=== PATIENT | male | born 1955 | race Caucasian/White ===

== ENCOUNTER 2017-08-12 18:17 | Emergency (ER) | payer OTHER ==
[~2017-08-12] VITALS: Ht 180.3 cm; Wt 90.8 kg
[2017-08-12] MEDS ORDERED: morphine 4 MG/ML inj SYRINge IM ONE (19:55)
[2017-08-12] MEDS ORDERED: ketorolac trometh. 30mg/ml inj. IV ONE (19:55)
[2017-08-12] MEDS ORDERED: ketorolac tromethamine 15mg/ml inj. IV ONE (19:55)
[2017-08-12] MEDS ORDERED: TRAM50TA2 PO (20:51)
[2017-08-12 21:06] VITALS: BP 155/74
== END 2017-08-12 21:12 | disposition home or self-care (01) ==
LOC: ER 18:18
DX: S82.892A Other fracture of left lower leg, initial encounter for closed fracture (principal); W01.0XXA Fall on same level from slipping, tripping and stumbling without subsequent striking against object, initial encounter; Y93.89 Activity, other specified; Y92.89 Other specified places as the place of occurrence of the external cause; Y99.8 Other external cause status
CPT/HCPCS: 29515; 73610; 96372; 96374; 99284; A6255; A6449; J1885; J2270

== ENCOUNTER 2017-08-27 08:26 | Outpatient (CLI) | payer OTHER ==
[~2017-08-27 08:26] MED LIST: TRAM50TA2 PO
[2017-08-27 08:29] VITALS: BP 158/83
== END 2017-08-27 09:46 | disposition home or self-care (01) ==
LOC: ORTHO 08:26
PROVIDERS: ATTEND Nurse Practitioner Family
DX: S82.832G Other fracture of upper and lower end of left fibula, subsequent encounter for closed fracture with delayed healing (principal); I10 Essential (primary) hypertension; E78.00 Pure hypercholesterolemia, unspecified; J44.9 Chronic obstructive pulmonary disease, unspecified; F17.210 Nicotine dependence, cigarettes, uncomplicated; X58.XXXD Exposure to other specified factors, subsequent encounter
CPT/HCPCS: 73610; 99213; A6446; A6449

== ENCOUNTER 2017-09-02 10:32 | Day surgery (SDC) | payer OTHER ==
[2017-09-01 15:40] LABS: BASOPHILS % (AUTO) 0.4 % (0-1); EOSINOPHILS # (AUTO) 0.2 X10'3 (0-0.9); EOSINOPHILS % (AUTO) 2.6 % (0-6); LYMPHOCYTES # (AUTO) 1.9 X10'3 (1.1-4.8); LYMPHOCYTES % (AUTO) 20.4 % (21-51); MEAN CORPUSCULAR HEMOGLOBIN 32.1 PG (27.0-31.0); MEAN CORPUSCULAR HGB CONC 34.7 % (33.0-36.5); MEAN CORPUSCULAR VOLUME 92.7 FL (78-98); MEAN PLATELET VOLUME 7.5 FL (7.4-10.4); MONOCYTES # (AUTO) 0.5 X10'3 (0-0.9); MONOCYTES % (AUTO) 4.9 % (2-12); NEUTROPHILS # (AUTO) 6.7 X10'3 (1.8-7.7); NEUTROPHILS % (AUTO) 71.7 % (42-75); PRE OP HEMATOCRIT 45.4 % (42.0-52.0); PRE OP HEMOGLOBIN 15.8 g/dL (14.0-17.9); PRE OP PLATELET COUNT 223 X10'3 (140-440); RED CELL DISTRIBUTION WIDTH 14.3 % (11.5-14.5)
[2017-09-01 15:46] LABS: ALBUMIN 3.6 G/DL (3.4-5.0); ALBUMIN/GLOBULIN RATIO 0.9 (1.1-1.5); ALKALINE PHOSPHATASE 85 IU/L (46-116); BLOOD UREA NITROGEN 14 MG/DL (7-18); BUN/CREATININE RATIO 13.9 (5.4-32.0); CALCIUM 8.9 MG/DL (8.5-10.1); CHLORIDE 105 MMOL/L (99-107); CREATININE 1.01 MG/DL (0.60-1.10); PRE OP ALT 46 U/L (30-65); PRE OP ANION GAP 6 (8-16); PRE OP AST 24 U/L (10-37); PRE OP BILIRUB, TOTAL 0.3 MG/DL (0.0-1.0); PRE OP GLUCOSE 92 MG/DL (70-104); PRE OP POTASSIUM 4.1 MMOL/L (3.4-5.1); PRE OP SODIUM 142 MMOL/L (135-145); TOTAL CARBON DIOXIDE 30.7 MMOL/L (24-32); TOTAL PROTEIN 7.5 G/DL (6.4-8.2); eGFR 74 ML/MIN
[~2017-09-02] VITALS: Ht 177.8 cm; Wt 106.6 kg
[~2017-09-02 10:32] MED LIST changes: +ceFAZolin inj. 2,000 MG in dextrose 5%-water 100 ML IV ONE; +famotidine 20mg tablet PO ONE; +ringers solution, lacted 1,000 ML IV SCH; +vancomycin inj 1,500 MG in normal saline 300ml IV soln IV ONE
[2017-09-02 10:45] VITALS: BP 157/79
[2017-09-02] MEDS ORDERED: bacitracin 15gm ointment TP ONE (12:40)
[2017-09-02] MEDS ORDERED: ceFAZolin 1000mg inj ONE (12:40)
[2017-09-02] MEDS ORDERED: BUPIVAcaine/PF 7.5mg/ml (0.75%) 10ml vial ONE (12:40)
[2017-09-02] MEDS ORDERED: fentaNYL /PF 50mcg/ml 5ml ampule ONE (13:01)
[2017-09-02] MEDS ORDERED: midazolam 2 mg/2 ml injection ONE (13:01)
[2017-09-02] MEDS ORDERED: LIDOcaine 2% (20mg/ml) 5ml vial ONE ×2 (13:02→14:24)
[2017-09-02] MEDS ORDERED: propofol inj 20 ML IV ONE (13:02)
[2017-09-02] MEDS ORDERED: sevoflurane 250ml liquid IH ONE (13:12)
[2017-09-02] MEDS ORDERED: metoprolol tartrate 1mg/ml inj IV ONE (13:12)
[2017-09-02] MEDS ORDERED: ringers solution, lacted 1,000 ML IV SCH (13:53)
[2017-09-02] MEDS ORDERED: ondansetron/PF 4mg/2ml inj IV PRN (13:55)
[2017-09-02] MEDS ORDERED: HYDROmorphone inj. 0.5 MG/0.5 ML DISP.SYRIN IV PRN (13:55)
[2017-09-02] MEDS ORDERED: hydrALAZINE 20mg/ml inj. IV PRN (13:55)
[2017-09-02] MEDS ORDERED: HYDROmorphone 1 mg/ml syringe IV PRN (14:02)
[2017-09-02] MEDS ORDERED: ketorolac trometh. 30mg/ml inj. ONE (14:05)
[2017-09-02] MEDS ORDERED: fentaNYL/PF 50MCG/1 ML 2ML syringe ONE (14:17)
[2017-09-02] MEDS ORDERED: ondansetron/PF 4mg/2ml inj ONE (14:17)
[2017-09-02 15:10] VITALS: BP 160/113
[2017-09-02] MEDS: fentaNYL/PF 50MCG/1 ML 2ML syringe IV PRN ×2 (15:15→15:37)
[2017-09-02 15:20] VITALS: BP 186/91
[2017-09-02 15:30] VITALS: BP 155/73
[2017-09-02 15:40] VITALS: BP 148/77
[2017-09-02 15:50] VITALS: BP 140/94
== END 2017-09-02 16:20 | disposition home or self-care (01) ==
LOC: PAS 10:32
PROVIDERS: ATTEND Orthopaedic Surgery
DX: S82.62XA Displaced fracture of lateral malleolus of left fibula, initial encounter for closed fracture (principal); I10 Essential (primary) hypertension; E78.5 Hyperlipidemia, unspecified; J44.9 Chronic obstructive pulmonary disease, unspecified; F17.210 Nicotine dependence, cigarettes, uncomplicated; E66.9 Obesity, unspecified; E78.00 Pure hypercholesterolemia, unspecified; G89.18 Other acute postprocedural pain; Z88.5 Allergy status to narcotic agent; Z72.89 Other problems related to lifestyle; Z68.33 Body mass index [BMI] 33.0-33.9, adult; Z79.891 Long term (current) use of opiate analgesic; Z98.41 Cataract extraction status, right eye; Z98.42 Cataract extraction status, left eye; Z98.890 Other specified postprocedural states; W01.0XXA Fall on same level from slipping, tripping and stumbling without subsequent striking against object, initial encounter; Y93.89 Activity, other specified; Y92.89 Other specified places as the place of occurrence of the external cause; Y99.8 Other external cause status
CPT/HCPCS: 27792; 36415; 64450; 71046; 80053; 85025; 93005; A6449; C1713; J0690; J1885; J2001; J2250; J2405; J2704; J3010; J3370; J3490; J7060; J7120; A7000

== ENCOUNTER 2017-09-11 09:48 | Outpatient (CLI) | payer OTHER ==
[~2017-09-11 09:48] MED LIST changes: -ceFAZolin inj. 2,000 MG in dextrose 5%-water 100 ML IV ONE; -famotidine 20mg tablet PO ONE; -ringers solution, lacted 1,000 ML IV SCH; -vancomycin inj 1,500 MG in normal saline 300ml IV soln IV ONE
== END 2017-09-11 10:51 | disposition home or self-care (01) ==
LOC: ORTHO 09:48
PROVIDERS: ATTEND Nurse Practitioner Family
DX: S82.832D Other fracture of upper and lower end of left fibula, subsequent encounter for closed fracture with routine healing (principal); F17.210 Nicotine dependence, cigarettes, uncomplicated; X58.XXXD Exposure to other specified factors, subsequent encounter
CPT/HCPCS: 73600; 99213; L4360

== ENCOUNTER 2017-10-03 10:34 | Outpatient (CLI) | payer OTHER ==
[2017-10-03 10:41] VITALS: BP 176/85
== END 2017-10-03 11:34 | disposition home or self-care (01) ==
LOC: ORTHO 10:34
PROVIDERS: ATTEND Nurse Practitioner Family
DX: S82.832G Other fracture of upper and lower end of left fibula, subsequent encounter for closed fracture with delayed healing (principal); J44.9 Chronic obstructive pulmonary disease, unspecified; F17.210 Nicotine dependence, cigarettes, uncomplicated; X58.XXXD Exposure to other specified factors, subsequent encounter
CPT/HCPCS: 73610; 99213

== ENCOUNTER 2017-10-15 10:43 | Outpatient (CLI) | payer OTHER ==
[2017-10-15 10:57] VITALS: BP 152/87
== END 2017-10-15 11:37 | disposition home or self-care (01) ==
LOC: ORTHO 10:43
PROVIDERS: ATTEND Nurse Practitioner Family
DX: S82.832G Other fracture of upper and lower end of left fibula, subsequent encounter for closed fracture with delayed healing (principal); F17.210 Nicotine dependence, cigarettes, uncomplicated; Z72.89 Other problems related to lifestyle; X58.XXXD Exposure to other specified factors, subsequent encounter
CPT/HCPCS: 73610; 99213

== ENCOUNTER 2017-10-30 09:22 | Outpatient (CLI) | payer OTHER ==
[2017-10-30 09:19] VITALS: BP 166/78
== END 2017-10-30 09:45 | disposition home or self-care (01) ==
LOC: ORTHO 09:22
PROVIDERS: ATTEND Nurse Practitioner Family
DX: S82.832G Other fracture of upper and lower end of left fibula, subsequent encounter for closed fracture with delayed healing (principal); F17.210 Nicotine dependence, cigarettes, uncomplicated; J44.9 Chronic obstructive pulmonary disease, unspecified; W01.0XXD Fall on same level from slipping, tripping and stumbling without subsequent striking against object, subsequent encounter
CPT/HCPCS: 73610; 99213

== ENCOUNTER 2017-12-23 16:12 | Outpatient (CLI) | payer OTHER ==
[2017-12-23 16:37] VITALS: BP 144/76
== END 2017-12-23 16:45 | disposition home or self-care (01) ==
LOC: ORTHO 16:12
PROVIDERS: ATTEND Nurse Practitioner Family
DX: S82.832D Other fracture of upper and lower end of left fibula, subsequent encounter for closed fracture with routine healing (principal); M79.89 Other specified soft tissue disorders; F17.210 Nicotine dependence, cigarettes, uncomplicated; J44.9 Chronic obstructive pulmonary disease, unspecified; W01.0XXD Fall on same level from slipping, tripping and stumbling without subsequent striking against object, subsequent encounter
CPT/HCPCS: 73610; 99213